=== PATIENT | male | born 1945 | race Caucasian/White ===

== ENCOUNTER 2019-01-27 17:55 | Emergency (ER) | payer OTHER ==
[~2019-01-27] VITALS: Ht 170.2 cm; Wt 63.5 kg
[~2019-01-27 17:55] MED LIST: ATENOLOL25 MG; FENOFIBRATE160 MG; GABAPENTIN600 MG; INTEGRA CAPSUL1 EACH; LEVOXYL25 MCG; NEURONTIN800 MG; PANADOL EXTRA500 MG; PROTONIX40 M1; ZANTAC300 MG
[2019-01-28] MEDS ORDERED: ULTRACET PO (02:31)
== END 2019-01-28 02:49 | disposition home or self-care (01) ==
LOC: ER 17:55
DX: R10.12 Left upper quadrant pain (principal); R10.32 Left lower quadrant pain

== ENCOUNTER 2019-02-13 06:13 | Day surgery (SDC) | payer OTHER ==
[~2019-02-13 06:13] MED LIST changes: +ULTRACET PO
== END 2019-02-13 11:55 | disposition home or self-care (01) ==
LOC: AMB-ENDOS 06:13
DX: K57.30 Diverticulosis of large intestine without perforation or abscess without bleeding (principal); K64.8 Other hemorrhoids

== ENCOUNTER 2019-09-14 21:53 | Emergency (ER) | payer OTHER ==
[~2019-09-14] VITALS: Ht 170.2 cm; Wt 64.4 kg
[2019-09-14] MEDS ORDERED: PRILOSEC OTC20 MG (22:09)
[2019-09-14] MEDS ORDERED: ELIQUIS2.5 MG (22:10)
[2019-09-14] MEDS ORDERED: OMEPRAZOLE-BIC1 EAC1 (22:10)
[2019-09-14] MEDS ORDERED: SILDENAFIL20 MG (22:12)
[2019-09-14] MEDS ORDERED: ABANEU-SL TABL1 EACH (22:13)
[2019-09-14] MEDS ORDERED: TORSEMIDE20 MG (22:13)
== END 2019-09-16 10:26 | disposition home or self-care (01) ==
LOC: ER 21:53
DX: K57.32 Diverticulitis of large intestine without perforation or abscess without bleeding (principal)

== ENCOUNTER 2020-07-01 09:57 | Outpatient (CLI) | payer OTHER ==
[~2020-07-01 09:57] MED LIST changes: +ABANEU-SL TABL1 EACH; +ELIQUIS2.5 MG; +OMEPRAZOLE-BIC1 EAC1; +PRILOSEC OTC20 MG; +SILDENAFIL20 MG; +TORSEMIDE20 MG
== END 2020-07-01 10:07 | disposition home or self-care (01) ==
LOC: TOM 09:57
PROVIDERS: ATTEND Family Medicine
DX: K57.90 Diverticulosis of intestine, part unspecified, without perforation or abscess without bleeding (principal); K51.40 Inflammatory polyps of colon without complications; R10.84 Generalized abdominal pain